=== PATIENT | female | born 1960 | race Caucasian/White ===

== ENCOUNTER → 2020-04-06 11:22 | Outpatient (CLI) | payer OTHER, SELFPAY ==
--- NOTE | ~2020-04-06 | XR_ITS ---
XR chest 2V 04/06/2020 11:50 Indication: Cough Procedure: 2 view chest Comparison: 04/20/2019 Findings: Heart size normal. No focal pneumonia, edema, pleural effusion or pneumothorax. Impression: 1: No acute cardiopulmonary disease. Reviewed, dictated and finalized at location B. Impression: 1: No acute cardiopulmonary disease.
== END ==
PROVIDERS: Visit Provider Allergy & Immunology
DX: R05 Cough (principal)
CPT/HCPCS: 71046

== ENCOUNTER → 2020-05-02 13:27 | Outpatient (CLI) | payer OTHER, SELFPAY ==
--- NOTE | ~2020-05-02 | US_ITS ---
EXAMINATION: US thyroid DATE: 05/02/2020 13:42 INDICATION: Thyroid nodule. TECHNIQUE: Multiple ultrasound images of the thyroid were obtained. COMPARISON: Ultrasound 04/20/2019, 02/02/2016 FINDINGS: The right thyroid lobe measures 5.4 x 1.5 x 2.0 cm. The left thyroid lobe measures 4.3 x 1.3 x 1.4 c m. In the right thyroid lobe, there is a 1.6 cm mixed cystic and solid, isoechoic, [id number] n odule with lobulated margin without echogenic foci with solid portion stable from 02/02/2016 (TI-RADS TR4). IMPRESSION: 1. Stable thyroid nodule. By report, biopsy was benign in 2015. Reviewed, dictated and finalized at location B.
== END ==
DX: E04.1 Nontoxic single thyroid nodule (principal)
CPT/HCPCS: 76536

== ENCOUNTER → 2020-05-14 14:21 | Outpatient (CLI) | payer OTHER, SELFPAY ==
--- NOTE | ~2020-05-14 | MMUS_ITS ---
EXAMINATION: MM diagnostic lamin BI w tristan, US breast RT limited HISTORY: Fibrocystic change of the breast, family history of breast cancer in her mother TECHNIQUE: Craniocaudal, mediolateral, and mediolateral oblique 3-D tomosynthesis images of the breas ts were performed and synthetic 2-D images were generated. CAD analysis was submitted and interpreted . High resolution limited right breast ultrasound was performed. COMPARISON: 04/20/2019 BREAST PARENCHYMAL COMPOSITION: There are scattered areas of fibroglandular density. FINDINGS: MAMMOGRAPHIC FINDINGS: There is a 6 mm mass in the middle/posterior third of the right breast at the 9:00 location 6 cm from the nipple which demonstrates apparent central fat. No associated architectural distortion or calcif ication are identified. There is no suspicious mass, calcification, or architectural distortion of th e left breast. ULTRASOUND: An intramammary lymph node is present in the right breast at the 8:00 location 8 cm from the nipple c orresponding to the mammographic finding in question. No suspicious cystic or solid mass is identifie d. IMPRESSION: 1. No mammographic or sonographic evidence of malignancy. 2. Recommend routine screening mammography in one year. BI-RADS Category 2: Benign finding(s). Reviewed, dictated and finalized at location A. IMPRESSION: 1. No mammographic or sonographic evidence of malignancy. 2. Recommend routine screening mammography in one year. BI-RADS Category 2: Benign finding(s).
== END ==
PROVIDERS: PCP Family Medicine; Visit Provider Family Medicine
DX: N60.12 Diffuse cystic mastopathy of left breast (principal); N60.11 Diffuse cystic mastopathy of right breast
CPT/HCPCS: 76642; 77062; 77066; G0279

== ENCOUNTER → 2021-08-19 14:21 | Outpatient (CLI) | payer OTHER, SELFPAY ==
--- NOTE | ~2021-08-19 | US_ITS ---
EXAMINATION: US thyroid EXAM DATE: 08/19/2021 14:57 INDICATION: E04.1 - Nontoxic single thyroid nodule. TECHNIQUE: Multiple grayscale and Doppler images of the thyroid were obtained (by a technologist who performed the scan) and subsequently reviewed. Individual nodules and recommendations may be reporte d in accordance with TI-RADS system as designated by the 2017 ACR White Paper TI-RADS committee. Comp arison is made to prior examination from 05/02/2020. FINDINGS: Right there are lobe measures 4.8 x 1.8 x 1.6 cm, the left measuring 4.3 x 1.4 x 1.2 cm. Dimensions a re slightly decreased in size compared to prior study. Right thyroid lobe nodule measuring 1.6 x 1.2 x 1.4 cm, unchanged. Reportedly, this nodule has been p reviously biopsied in 2016. IMPRESSION: Right thyroid lobe nodule unchanged, likely benign. Reviewed, dictated and finalized at location A. CENTER SUPERVISOR
== END ==
PROVIDERS: PCP Family Medicine; Visit Provider Family Medicine
DX: E04.1 Nontoxic single thyroid nodule (principal)
CPT/HCPCS: 76536

== ENCOUNTER 2021-09-10 13:44 | Outpatient (CLI) | payer OTHER, SELFPAY | END 2021-09-10 13:45 | disposition home or self-care (01) | PROVIDERS: PCP Family Medicine; Visit Provider Family Medicine | DX: E07.9 Disorder of thyroid, unspecified (principal); R73.9 Hyperglycemia, unspecified | CPT/HCPCS: 36415; 83036; 84443 ==

== ENCOUNTER 2022-02-11 10:22 | Emergency (ER) | payer OTHER, SELFPAY ==
[2022-02-11 10:30] VITALS: BP 142/86; PULSE 98; RESP 20; TEMP 37.3; O2SAT 98
--- NOTE | 2022-02-11 11:36 | ED.URI ---
HPI - URI/Sore Throat General Chief Complaint: Upper Respiratory Infection Stated Complaint: tested positive for covid Time Seen by Provider: 02/11/22 11:40 Source: patient, family and RN notes reviewed Mode of arrival: ambulatory Limitations: no limitations History of Present Illness HPI Narrative: 62-year-old female with history of COPD and hospitalization for COVID in the past presents with concern for positive COVID test, she would like a COVID antiviral. She reports symptoms started yesterday morning with fever, body aches, scratchy throat, postnasal drainage, nasal congestion. Reports she is having slight upper airway wheezing with productive cough. Reports she has used her rescue inhaler. MD elicited complaint: cough and nasal congestion Related Data Home Medications Medication Instructions Recorded Confirmed beclomethasone dipropionate 80 1 inh intranasal [id number] 02/11/22 02/11/22 mcg/actuation nasal HFA inhaler (QNASL) epinephrine 0.3 mg/0.3 mL See Rx Instructions .Route .COMPLEX 02/11/22 02/11/22 injection, auto-injector (Auvi-Q) fluticasone fur. 200 mcg-umeclid 1 inh inhalation DAILY 02/11/22 02/11/22 62.5 mcg-vilant 25 mcg inhalat.powder (Trelegy Ellipta) losartan 100 mg tablet 50 mg PO DAILY 02/11/22 02/11/22 montelukast 10 mg tablet 10 tablet PO DAILY 02/11/22 02/11/22 omalizumab 150 mg/mL subcutaneous See Rx Instructions .Route .COMPLEX 02/11/22 02/11/22 syringe (Xolair) Allergies Allergy/AdvReac Type Severity Reaction Status Date / Time aspirin Allergy Unknown Verified 02/11/22 11:38 NSAIDS (Non-Steroidal Allergy Unknown Verified 02/11/22 11:38 Anti-Inflamma Penicillins Allergy Rash Verified 02/11/22 11:38 Review of Systems Review of Systems: CONSTITUTIONAL: Reports malaise, fever. EYES: Denies visual changes, redness, or discharge. ENT: Reports rhinorrhea, congestion, scratchy throat, postnasal drainage CARDIOVASCULAR: Denies chest pain, palpitations, or edema. RESPIRATORY: Reports cough. Denies dyspnea. GASTROINTESTINAL: Denies abdominal pain, nausea, vomiting, diarrhea SKIN: Denies rash or itching. MUSCULOSKELETAL: Reports myalgia. NEUROLOGIC: Reports headache. All systems reviewed & are unremarkable except as noted in HPI and below PMFSH Comments At time of signature, agree with nursing past medical, surgical, social and family history. There is no relevant family history pertinent to the presenting complaint Exam Narrative: GENERAL: Nontoxic appearing and in no acute distress. HEAD: Normocephalic EYES: PERRLA, conjunctivae clear ENT: Nares clear, clear discharge. Mucous membranes moist. TM pearly duvall with dull light reflex bilaterally; no tragal tenderness. Oropharynx not erythematous without lesions. Tonsils not enlarged and without exudate, no drooling, no hoarseness, no trismus, uvula midline. NECK: Supple. No lymphadenopathy CHEST: Slight crackles in the left base, otherwise clear to auscultation, breath sounds equal. No wheezing, rhonchi, rales, or stridor. No respiratory distress, speaks in full sentences. HEART: Regular rate and rhythm. No murmur heard. SKIN: Warm, dry, no rash. NEURO: Alert and oriented x3. PSYCH: Normal mood and affect Course Course Emergency Course: Discussed with patient and her , who is a physician's patient clerical assistant the interaction between Paxil Abebe and Trelegy. Recommended molnupiravir which did not interact presenting the patient's medications. Patient and her still express a desire to be treated with Paxil with due to its effectiveness over the alternative. After discussing risks and benefits, they still choose to use pack fluid. They are worried because the patient has spent 12 days in the hospital for COVID in the past and would like the most effective antiviral possible. that they discuss this with her pharmacist prior to use, and willing to change the prescription if they change their mind. Patient is aware of diagnosis,
== END 2022-02-11 12:00 | disposition home or self-care (01) ==
PROVIDERS: Emergency Provider Nurse Practitioner; PCP Family Medicine
DX: U07.1 COVID-19 (principal); J44.9 Chronic obstructive pulmonary disease, unspecified; Z86.16 Personal history of COVID-19
CPT/HCPCS: 99213; G0463

== ENCOUNTER → 2022-07-16 15:58 | Outpatient (CLI) | payer OTHER, SELFPAY ==
--- NOTE | ~2022-07-16 | DEXA_ITS ---
Bone Density Report Name: CORA CARABALLO Age: 62 Sex: Female Ethnicity: White Date of : 1960 Indication: osteopenia; height loss; asthma or emphysema; Referring Provider: ANDRADE DUBOIS Study: Bone densitometry was performed. Exam Date: July 16, 2022 Accession number: [id number] Bone Density: Region BMD T-score Z-score Classification AP Spine (L1-L4) 0.823 -2.0 -0.3 Osteopenia Femoral Neck (Left) 0.555 -2.6 -1.2 Osteoporosis Total Hip (Left) 0.652 -2.4 -1.2 Osteopenia Femoral Neck (Right) 0.557 -2.6 -1.2 Osteoporosis Total Hip (Right) 0.675 -2.2 -1.0 Osteopenia Total Hip Mean 0.664 -2.3 -1.1 Osteopenia World Health Organization criteria for BMD impression classify patients as: Normal (T-score at or above -1.0), Osteopenia (T-score between -1.0 and -2.5), or Osteoporosis (T-score at or below -2.5). 10-year Fracture Risk: FRAX not reported because: Some T-score for Spine Total or Hip Total or Femoral Neck at or below -2.5 Previous Exams: Region Exam Age BMD T-score BMD Change BMD Change Date g/cm2 vs Baseline vs Previous AP Spine(L1-L4) 07/16/2022 62 0.823 -2.0 -0.052* 0.027* 04/20/2019 59 0.796 -2.3 -0.079* -0.051* 06/16/2014 54 0.847 -1.8 -0.028* -0.028* 11/23/2009 49 0.875 -1.6 Total Hip(Left) 07/16/2022 62 0.652 -2.4 -0.104* -0.017 04/20/2019 59 0.669 -2.2 -0.087* -0.063* 06/16/2014 54 0.732 -1.7 -0.024 -0.024 11/23/2009 49 0.756 -1.5 Total Hip(Right) 07/16/2022 62 0.675 -2.2 -0.097* 0.010 04/20/2019 59 0.665 -2.3 -0.107* -0.075* 06/16/2014 54 0.740 -1.7 -0.033* -0.033* 11/23/2009 49 0.772 -1.4 *Denotes significance at 95% confidence level, LSC for AP Spine = 0.022 g/cm2, LSC for Total Hip = 0.027 g/cm2 Clinical Information Provided by Patient: Has used the following medications: Vitamin D, Calcium Has the following medical conditions: Asthma or Emphysema Patient maximum height was 62 Menopause Age: 47 No regular weight bearing exercise Drinks caffeinated beverages Onset of menses at age 14 Number of children 0 Impression: The patient has osteoporosis, based on the Left Femoral Neck T-score. No significant bone loss was observed. Discussion: INCREASED RISK OF FRACTURE. BONE DENSITY IS UNDESIRABLY LOW AT ONE OR MORE SKELETAL SITES, CONSIS
== END ==
PROVIDERS: PCP Family Medicine; Visit Provider Family Medicine
DX: E07.9 Disorder of thyroid, unspecified (principal); M81.0 Age-related osteoporosis without current pathological fracture; M85.89 Other specified disorders of bone density and structure, multiple sites
CPT/HCPCS: 77080

== ENCOUNTER → 2022-08-25 12:50 | Outpatient (CLI) | payer OTHER, SELFPAY ==
--- NOTE | ~2022-08-25 | US_ITS ---
US thyroid INDICATION: Nontoxic thyroid nodule. Previous benign biopsy. TECHNIQUE: Real-time sonographic images of the thyroid gland were obtained. COMPARISON: Ultrasound dated 08/19/2021 and 05/02/2020 FINDINGS: The right thyroid lobe measures 5.6 x 1.7 x 2.2 cm. The left thyroid lobe measures 4.9 x 1 .3 x 1.1 cm. There is normal echotexture and echogenicity throughout the thyroid gland. Right thyroid mass has enlarged since prior examination when it measured 1.6 x 1.2 x 1.4 cm now measuring 2.1 x 1. 2 x 1.7 cm. This mass is mixed solid and cystic, hypoechoic, wider than tall, smoothly marginated wit hout internal echogenic foci, TR 3. Normal vascular flow is present. IMPRESSION: 1. Slightly increased size of complex right thyroid mass, TR 3, likely benign. Twelve-month follow-u p ultrasound recommended. Reviewed, dictated and finalized at location A. R PICKER IMPRESSION: 1. Slightly increased size of complex right thyroid mass, TR 3, likely benign. Twelve-month follow-up ultrasound recommended.
== END ==
PROVIDERS: PCP Family Medicine; Visit Provider Family Medicine
DX: E07.9 Disorder of thyroid, unspecified (principal); E04.1 Nontoxic single thyroid nodule
CPT/HCPCS: 76536

== ENCOUNTER 2022-09-08 14:37 | Outpatient (CLI) | payer OTHER, SELFPAY ==
[2022-09-08 18:59] LABS: Hemoglobin A1C 6.3 % (<5.7)
[2022-09-08 19:09] LABS: Hemoglobin 13.8 g/dL (12.0-15.0); Mean Corpuscular HGB Conc 33.7 g/dl (32-36); Mean Corpuscular Hemoglobin 30.9 pg (26-34); Mean Corpuscular Volume 91.9 fl (80-100); Mean Platelet Volume 10.2 fl (7.4-10.4); Platelet Count Result 435 k/mm3 (150-375); Red Blood Count 4.46 M/mm3 (4.2-5.4); Red Cell Distribution Width 12.8 % (11.5-14.5); White Blood Count 9.6 K/mm3 (4.5-10.0)
[2022-09-08 20:16] LABS: Creatinine Urine 18.6 mg/dL
[2022-09-08 20:30] LABS: Microalbumin Urine Random < 6.0 mg/L (0-16.7)
[2022-09-08 20:31] LABS: MALB Creatinine Ratio < 32.3 mg/g (0-30)
== END 2022-09-08 14:38 | disposition home or self-care (01) ==
PROVIDERS: PCP Family Medicine; Visit Provider Family Medicine
DX: E11.9 Type 2 diabetes mellitus without complications (principal); E07.9 Disorder of thyroid, unspecified; Z00.00 Encounter for general adult medical examination without abnormal findings
CPT/HCPCS: 36415; 82043; 83036; 84443; 84481; 85027

== ENCOUNTER 2023-06-01 14:49 | Outpatient (CLI) | payer MEDICARE, SELFPAY ==
[2023-06-01 20:06] LABS: Alanine Aminotransferase 24 U/L (6-35); Albumin Level 4.5 g/dL (3.5-5.1); Alkaline Phosphatase 68 U/L (38-126); Anion Gap 6 mmol/L (8-16); Aspartate Amino Transferase 57 U/L (14-36); Bilirubin,Total 0.4 mg/dL (0.2-1.3); Blood Urea Nitrogen 10 mg/dL (7-17); Calcium 9.1 mg/dL (8.4-10.2); Carbon Dioxide 27 mmol/L (22-30); Chloride 97 mmol/L (98-107); Estimated Glomerular Filt Rate > 60; Glucose 99 mg/dL (65-110); Potassium 3.8 mmol/L (3.4-5.0); Sodium 130 mmol/L (137-145)
[2023-06-01 20:28] LABS: Thyroid Stimulating Hormone 0.876 uIU/mL (0.465-4.680)
[2023-06-01 20:33] LABS: Hematocrit 42.4 % (37.0-47.0); Hemoglobin 14.6 g/dL (12.0-15.0); Mean Corpuscular HGB Conc 34.4 g/dl (32-36); Mean Corpuscular Volume 95.9 fl (80-100); Mean Platelet Volume 9.9 fl (7.4-10.4); Platelet Count Result 436 k/mm3 (150-375); Red Blood Count 4.42 M/mm3 (4.2-5.4); Red Cell Distribution Width 12.5 % (11.5-14.5); White Blood Count 9.2 K/mm3 (4.5-10.0)
[2023-06-01 20:37] LABS: Creatinine Urine 7.3 mg/dL
[2023-06-01 20:38] LABS: Hemoglobin A1C 5.8 % (<5.7)
[2023-06-01 20:51] LABS: MALB Creatinine Ratio < 82.2 mg/g (0-30); Microalbumin Urine Random < 6.0 mg/L (0-16.7)
== END 2023-06-01 14:50 | disposition home or self-care (01) ==
PROVIDERS: PCP Family Medicine; Visit Provider Family Medicine
DX: E11.9 Type 2 diabetes mellitus without complications (principal); E07.9 Disorder of thyroid, unspecified
CPT/HCPCS: 36415; 80053; 82043; 83036; 84443; 85027

== ENCOUNTER 2023-07-01 13:49 | Outpatient (CLI) | payer MEDICARE, SELFPAY ==
[2023-07-01 19:50] LABS: Alanine Aminotransferase 20 U/L (6-35); Albumin Level 4.5 g/dL (3.5-5.1); Alkaline Phosphatase 65 U/L (38-126); Anion Gap 7 mmol/L (8-16); Aspartate Amino Transferase 50 U/L (14-36); Bilirubin,Total 0.5 mg/dL (0.2-1.3); Blood Urea Nitrogen 13 mg/dL (7-17); Calcium 9.5 mg/dL (8.4-10.2); Carbon Dioxide 27 mmol/L (22-30); Chloride 100 mmol/L (98-107); Estimated Glomerular Filt Rate > 60; Glucose 86 mg/dL (65-110); Potassium 4.5 mmol/L (3.4-5.0); Sodium 134 mmol/L (137-145)
[2023-07-01 20:14] LABS: Hepatitis B Surface Antigen Negative (Negative)
[2023-07-01 20:19] LABS: HAV RESULT Negative (Negative); Hepatitis B Core IgM Result Negative (Negative)
[2023-07-01 20:31] LABS: Hepatitis C Virus Antibody Negative (Negative)
== END 2023-07-01 13:50 | disposition home or self-care (01) ==
PROVIDERS: PCP Family Medicine; Visit Provider Family Medicine
DX: E87.1 Hypo-osmolality and hyponatremia (principal); R74.01 Elevation of levels of liver transaminase levels
CPT/HCPCS: 36415; 80048; 80074; 80076

== ENCOUNTER → 2023-08-19 09:48 | Outpatient (CLI) | payer MEDICARE, SELFPAY ==
--- NOTE | ~2023-08-19 | US_ITS ---
US abdomen limited INDICATION: PROCEDURE: Realtime right upper abdominal ultrasound. COMPARISON: No prior studies for comparison. FINDINGS: The pancreas is normal without focal mass or pancreatic ductal dilation. There is a hypere choic structure along the margin of the liver which may represent adjacent bowel, although parenchyma l mass is not excluded. There is normal directional flow in the portal vein. Gallbladder is surgically absent. Common bile duct measures 5 mm. No sonographic Hines's sign. IMPRESSION: 1: Possible liver mass versus echogenic adjacent bowel. Recommend correlation with CT abdomen with co ntrast. Reviewed, dictated and finalized at location B. IT CONTROLLER IMPRESSION: 1: Possible liver mass versus echogenic adjacent bowel. Recommend correlation w ith CT abdomen with contrast.
--- NOTE | ~2023-08-19 | US_ITS ---
US thyroid INDICATION: Thyroid disorder. Nontoxic nodule. TECHNIQUE: Real-time sonographic images of the thyroid gland were obtained. COMPARISON: Comparison to multiple prior studies sequentially, with oldest reviewed study dated 05/02. FINDINGS: The right thyroid lobe measures 5.3 x 1.6 x 2 cm. The left thyroid lobe measures 4.9 x 1.2 x 1.1 cm. In the right lobe there is a complex partially cystic 1.8 x 1.4 x 1.1 cm mass which shows slightly hypoechoic, wider than tall, smoothly marginated without echogenic foci, TR3. Normal vascula r flow is present. IMPRESSION: 1. Stable complex right thyroid nodule measuring 1.8 cm, TR 3, likely benign. Continued follow-up th oid ultrasound in 12 months recommended. Reviewed, dictated and finalized at location B. SH MIXER IMPRESSION: 1. Stable complex right thyroid nodule measuring 1.8 cm, TR 3, likely benign. Continued follow-up thyroid ultrasound in 12 months recommended.
== END ==
PROVIDERS: PCP Family Medicine; Visit Provider Family Medicine
DX: E07.9 Disorder of thyroid, unspecified (principal); E04.1 Nontoxic single thyroid nodule; R74.01 Elevation of levels of liver transaminase levels
CPT/HCPCS: 76536; 76705

== ENCOUNTER → 2023-08-26 11:45 | Outpatient (CLI) | payer MEDICARE, SELFPAY ==
--- NOTE | ~2023-08-26 | CT_ITS ---
EXAMINATION: CT abdomen w con DATE: 08/26/2023 12:17 INDICATION: Elevated liver enzymes. Possible liver mass. Hepatomegaly. TECHNIQUE: Computed tomography (CT) of the abdomen was performed with 100 cc Omnipaque 350 intravenou s contrast. The dose-length product was 148.46 mGy-cm. Automated exposure control and iterative recon struction technique were employed. COMPARISON: None. FINDINGS: There are reticulonodular densities of the right lower lobe similar which exhibit associate d groundglass opacification, suspicious for infectious/inflammatory process. Heart size normal. No si gnificant pleural or pericardial effusion. Status post cholecystectomy. The liver, spleen, pancreas, adrenal glands and right kidney are unremarkable. There are small subcentimeter hypodensities of the left kidney, most likely benign cysts. Nonobstructive bowel gas pattern. No significant vascular abno rmality. No lymphadenopathy. IMPRESSION: 1. No significant abnormality of the abdomen. No evidence for hepatomegaly or liver mass. Reviewed, dictated and finalized at location B. AIGN DIRECTOR IMPRESSION: 1. No significant abnormality of the abdomen. No evidence for hepatomegaly or l iver mass.
[2023-08-26 12:09] LABS: Estimated Glomerular Filt Rate > 60
== END ==
PROVIDERS: PCP Family Medicine; Visit Provider Family Medicine
DX: R16.0 Hepatomegaly, not elsewhere classified (principal)
CPT/HCPCS: 74160; Q9967

== ENCOUNTER 2024-05-18 13:50 | Outpatient (CLI) | payer MEDICARE, SELFPAY ==
--- NOTE | ~2024-05-18 | XR_ITS ---
Clinical Indication: Cough PA and lateral views of the chest: Comparison: 04/06/2020 Findings: The lungs are clear, without evidence of focal consolidation or pleural effusion. Cardiome diastinal silhouette is within normal limits. Bones and soft tissues are unremarkable. Impression: Normal chest. Reviewed, dictated and finalized at [facility]. Impression: Normal chest.
== END 2024-05-18 13:51 ==
LOC: MICIMG 13:53
PROVIDERS: PCP Family Medicine; Visit Provider Allergy & Immunology
DX: R05.9 Cough, unspecified (principal); R06.2 Wheezing
CPT/HCPCS: 71046

== ENCOUNTER 2024-08-17 10:52 | Outpatient (CLI) | payer MEDICARE, SELFPAY ==
--- NOTE | ~2024-08-17 | US_ITS ---
EXAMINATION: US thyroid DATE: 08/17/2024 11:07 INDICATION: Thyroid disorder TECHNIQUE: Multiple ultrasound images of the thyroid were obtained. COMPARISON: 08/19/2023 FINDINGS: The right thyroid lobe measures 5.3 x 1.6 x 2.0 cm. The left thyroid lobe measures 4.9 x 1.1 x 1.2 c m. No significant interval change in a 1.8 x 0.5 x 1.1 cm mixed solid and cystic nodule which is wid er than tall with hypoechoic solid component, smooth margins and without echogenic foci (TI-RADS 3, m ildly suspicious , FNA if >=2.5 cm, annual followup is >=1.5 cm) There is normal echotexture, echoge nicity and vascular flow throughout the remainder of the thyroid gland. IMPRESSION: 1. Stable 1.8 cm TI RADS 3 right thyroid nodule for which continued annual ultrasound follow-up would be recommended. Reviewed, dictated and finalized at location A. RIAL FLOW ANALYST IMPRESSION: 1. Stable 1.8 cm TI RADS 3 right thyroid nodule for which continued annual ultr asound follow-up would be recommended.
== END 2024-08-17 10:53 | disposition home or self-care (01) ==
LOC: MICIMG 10:52
PROVIDERS: PCP Family Medicine; Visit Provider Family Medicine
DX: E04.1 Nontoxic single thyroid nodule (principal)
CPT/HCPCS: 76536

== ENCOUNTER 2025-04-05 12:29 | Outpatient (CLI) | payer MEDICARE, SELFPAY ==
--- NOTE | ~2025-04-05 | DEXA_ITS ---
Bone Density Report Name: CORA CARABALLO Age: 65 Sex: Female Ethnicity: White Date of : 1960 Indication: osteopenia; monitoring treatment; height loss; Referring Provider: ANDRADE DUBOIS Study: Bone densitometry was performed. Exam Date: April 05, 2025 Accession number: [id number] Bone Density: Region BMD T-score Z-score Classification AP Spine(L1-L4) 0.834 -1.9 0.0 Osteopenia Femoral Neck (Left) 0.575 -2.5 -0.8 Osteoporosis Total Hip (Left) 0.682 -2.1 -0.8 Osteopenia Femoral Neck (Right) 0.604 -2.2 -0.6 Osteopenia Total Hip (Right) 0.729 -1.7 -0.4 Osteopenia Total Hip Mean 0.705 -1.9 -0.6 Osteopenia World Health Organization criteria for BMD impression classify patients as: Normal (T-score at or above -1.0), Osteopenia (T-score between -1.0 and -2.5), or Osteoporosis (T-score at or below -2.5). 10-year Fracture Risk: FRAX not reported because: Some T-score for Spine Total or Hip Total or Femoral Neck at or below -2.5 Treated for osteoporosis Previous Exams: -- Region Exam Age BMD T-score BMD Change BMD Change Date g/cm2 vs Baseline vs Previous -- AP Spine (L1-L4) 04/05/2025 65 0.834 -1.9 -4.7%* 1.4% 07/16/2022 62 0.823 -2.0 -6.0%* 3.4%* 04/20/2019 59 0.796 -2.3 -9.1%* -6.0%* 06/16/2014 54 0.847 -1.8 -3.2%* -3.2%* 11/23/2009 49 0.875 -1.6 Total Hip(Left) 04/05/2025 65 0.682 -2.1 -9.8%* 4.7%* 07/16/2022 62 0.652 -2.4 -13.8%* -2.6% 04/20/2019 59 0.669 -2.2 -11.5%* -8.6%* 06/16/2014 54 0.732 -1.7 -3.2% -3.2% 11/23/2009 49 0.756 -1.5 Total Hip(Right) 04/05/2025 65 0.729 -1.7 -5.6%* 7.9%* 07/16/2022 62 0.675 -2.2 -12.6%* 1.5% 04/20/2019 59 0.665 -2.3 -13.9%* -10.1%* 06/16/2014 54 0.740 -1.7 -4.2%* -4.2%* 11/23/2009 49 0.772 -1.4 -- *Denotes significance at 95% confidence level, LSC for AP Spine = 0.022 g/cm2, LSC for Total Hip = 0.027 g/cm2 Clinical Information Provided by Patient: Is being treated for osteoporosis Has used the following medications: Fosamax (i.e. alendronate), Vitamin D, Calcium Patient maximum height was 62 Menopause Age: 47 Drinks caffeinated beverages Onset of menses at age 14 Number of children 0 Impression: The patient has osteoporosis, based on the Left Femoral Neck T-score. No significant bone loss was observed. Discussion: PATIENT UNDER TREATMENT WITH NO SIGNIFICANT BMD LOSS SINCE LAST EXAM. In an untreated patient, BMD typically declines with age. A lack of decline or gain is usually a sign that treatment is efficacious and fracture risk is reduced. It is important to ask patients whether they are taking their medications and to encourage continued and appropriate compliance with their osteoporosis therapies to reduce fracture risk. It is also important to review their risk factors and encourage appropriate calcium and vitamin D intakes, exercise, fall prevention and other lifestyle measures. Follow-Up: Consider a repeat BMD and Vertebral Fracture Assessment (VFA) exam in 2 years or sooner if medically necessary, to reassess this patient's status. Reported by: AUDREY on 04/05/2025 12:53:00 PM. Reviewed, dictated and finalized at location A.
== END 2025-04-05 12:30 | disposition home or self-care (01) ==
LOC: MICIMG 12:30
PROVIDERS: PCP Family Medicine; Visit Provider Family Medicine
DX: Z78.0 Asymptomatic menopausal state (principal); M85.89 Other specified disorders of bone density and structure, multiple sites; M81.0 Age-related osteoporosis without current pathological fracture
CPT/HCPCS: 77080